=== PATIENT | female | born 1960 | race Two or more races ===

== ENCOUNTER 2017-12-22 16:28 | Emergency (ER) | payer BC, OTHER ==
[~2017-12-22] VITALS: Ht 160 cm; Wt 111.1 kg
[2017-12-22] MEDS ORDERED: HYDROcodone-ACET 5/325MG TAB PO ONE (20:30)
[2017-12-22] MEDS ORDERED: MEPERIDINE HCL (50 MG/ML) 1 ML VIAL IV ONE (21:45)
[2017-12-22] MEDS ORDERED: ONDANSETRON HCL 4 MG/2 ML VIAL IV ONE (21:45)
[2017-12-23 02:16] VITALS: BP 116/63
== END 2017-12-23 02:26 | disposition home or self-care (01) ==
LOC: EDUNIT# 16:28 → EDBD 16:28 → ER 16:28
DX: S83.91XA Sprain of unspecified site of right knee, initial encounter (principal); Y92.410 Unspecified street and highway as the place of occurrence of the external cause; R51 Headache; V43.52XA Car driver injured in collision with other type car in traffic accident, initial encounter; Y93.89 Activity, other specified; Y99.8 Other external cause status; S20.219A Contusion of unspecified front wall of thorax, initial encounter
CPT/HCPCS: 70450; 71045; 71250; 72100; 73552; 73562; 73590; 73630; 74176; 93971; 96374; 96375; 99284; J2175; J2405